=== PATIENT | male | born 2000 | race African-American/Black ===

== ENCOUNTER 2020-11-08 08:02 | Emergency (ER) | payer OTHER ==
[2020-11-08] MEDS ORDERED: HYDROCODONE/ACETAMINOPHEN 7.5/325 MG TAB ONE (08:24)
== END 2020-11-08 09:42 | disposition home or self-care (01) ==
LOC: EDH 08:02
DX: R07.89 Other chest pain (principal); R06.02 Shortness of breath
CPT/HCPCS: 71046; 93005